=== PATIENT | female | born 1950 | race Caucasian/White ===

== ENCOUNTER 2024-01-19 12:45 | Emergency (ER) | payer OTHER, MEDICAID ==
[~2024-01-19] VITALS: Ht 165.1 cm; Wt 70.0 kg
[2024-01-19 13:09] VITALS: BP 0/0; PULSE 0; RESP 12; TEMP 98; O2SAT 92
== END 2024-01-19 16:00 ==
LOC: ER 12:52
DX: I46.9 Cardiac arrest, cause unspecified (principal); I12.0 Hypertensive chronic kidney disease with stage 5 chronic kidney disease or end stage renal disease; Z98.890 Other specified postprocedural states
CPT/HCPCS: 31500; 92950; 99291; Z7610